=== PATIENT | female | born 1990 | race American Indian/Alaskan Native ===

== ENCOUNTER 2016-11-26 23:28 | Emergency (ER) | payer SELFPAY ==
[2016-11-26 23:28] VITALS: BMI 26.6
[2016-11-27 00:31] VITALS: TEMP 98.2
[2016-11-27 01:19] VITALS: RESP 16
--- NOTE | 2016-11-27 02:18 | ED PDOC ---
Arrival/HPI - General Chief Complaint: Back Pain Time Seen by Provider: 11/27/16 02:10 Historian: Patient - History of Present Illness Narrative History of Present Illness (Text): 11/27/16 02:13 26 year old female whose past medical history includes gastritis presents to the Emergency department complaining of left sided lower back pain that began 4 days ago. Patient states pain is worse with movement. She denies any numbness, weakness, fever, abdominal pain, or urinary complaints. Denies any trauma or heavy lifting. Patient states she is not taking any prescription medications. Time/Duration: < week Symptom Onset: Gradual Symptom Course: Unchanged Activities at Onset: Rest Past Medical History - Provider Review Nursing Documentation Reviewed: Yes - Infectious Disease Hx of Infectious Diseases: None - Tetanus Immunization Tetanus Immunization: Unknown - Past Medical History Past Medical History: No Previous - Psychiatric Hx Depression: No Hx Emotional Abuse: No Hx Physical Abuse: No Hx Substance Use: No - Surgical History Hx Section: Yes - Anesthesia Hx Anesthesia: Yes Hx Anesthesia Reactions: No - Suicidal Assessment Feels Threatened In Home Enviroment: No Family/Social History - Physician Review Nursing Documentation Reviewed: Yes Family/Social History: Unknown Family HX Smoking Status: Never Smoked Hx Alcohol Use: No Hx Substance Use: No Hx Substance Use Treatment: No Allergies/Home Meds Allergies/Adverse Reactions: Allergies No Known Allergies Allergy (Verified 11/27/16 00:26) Review of Systems - Physician Review All systems were reviewed & negative as marked: Yes - Review of Systems Constitutional: absent: Fevers Gastrointestinal: absent: Abdominal Pain Genitourinary Female: absent: Dysuria, Frequency, Hematuria Neurological: absent: Focal Weakness, Other (no numbness) Physical Exam Vital Signs Reviewed: Yes Vital Signs Temp Pulse Resp BP Pulse Ox 11/27/16 05:14 67 16 102/61 99 11/27/16 03:59 66 16 98 11/27/16 01:18 72 16 113/61 100 11/27/16 00:29 98.2 F Temperature: Afebrile Blood Pressure: Normal Pulse: Regular Respiratory Rate: Normal Appearance: Positive for: Well-Appearing, Non-Toxic, Comfortable Pain Distress: None Mental Status: Positive for: Alert and Oriented X 3 - Systems Exam Head: Present: Atraumatic, Normocephalic Pupils: Present: PERRL Extroacular Muscles: Present: EOMI Conjunctiva: Present: Normal Mouth: Present: Moist Mucous Membranes Neck: Present: Normal Range of Motion Respiratory/Chest: Present: Clear to Auscultation, Good Air Exchange. No: Respiratory Distress, Accessory Muscle Use, Wheezes, Rales, Rhonchi Cardiovascular: Present: Regular Rate and Rhythm, Normal S1, S2. No: Murmurs, Rub, Gallop Abdomen: Present: Normal Bowel Sounds. No: Tenderness, Distention, Peritoneal Signs, Rebound, Guarding Back: Present: Pain with Leg Raise (+mild left sided lower back discomfort). No : CVA Tenderness, Midline Tenderness Upper Extremity: Present: Normal Inspection. No: Cyanosis, Edema Lower Extremity: Present: Normal Inspection, Normal ROM, Neurovascularly Intact. No: Edema Neurological: Present: GCS=15, CN II-XII Intact, Speech Normal, Motor Func Grossly Intact, Normal Sensory Function Skin: Present: Warm, Dry, Normal Color. No: Rashes Psychiatric: Present: Alert, Oriented x 3, Normal Insight, Normal Concentration Medical Decision Making ED Course and Treatment: 11/27/16 02:20 Impression: 26 year old female complaining of left sided lower back pain. Physical exam revealed mild left sided lower back discomfort with straight leg raise. Plan: --HCG, UA -- Reassess and disposition Prior Visits: Notes and results from previous visits were reviewed. Progress Notes: - Lab Interpretations Lab Results: Lab Results 11/27/16 02:48: Urine Color Yellow, Urine Appearance Clear, Urine pH 6.0, Ur Specific [place] >= 1.030, Urine Protein Negative, Urine Glucose (UA) Negative, Urine Ketones Negative, Urine Blood Trace-intact H, Urine Nitrate Negative, Urine Bilirubin Negative, Urine Urobilinogen 0.2, Ur Leukocyte Esterase Negative , Urine RBC 5 - 10, Urine WBC 2 - 5, Ur Epithelial Cells 4 - 5, Urine HCG, Qual Negative I have reviewed the lab results: Yes - Medication Orders Current Medication Orders: Discontinued Medications Cyclobenzaprine HCl (Flexeril) 10 mg PO ONCE ONE Stop: 11/27/16 03:35 Last Admin: 11/27/16 04:04 Dose: 10 MG Ibuprofen (Motrin Tab) 600 mg PO STAT STA Stop: 11/27/16 03:35 Last Admin: 11/27/16 04:02 Dose: 600 MG MAR Pain/Vitals Document 11/27/16 04:02 EKEOO (Rec: 11/27/16 04:04 LAURA [id number]) Pain Reassessment Is This A Pain ReAssessment? No Sleep Is patient sleeping during reassessment? No Presence of Pain Presence of Pain Yes - Scribe Statement The provider has reviewed the documentation as recorded by the Claudio Zamudio Provider Scribe Attestation: All medical record entries made by the Scribe were at my direction and personally dictated by me. I have reviewed the chart and agree that the record accurately reflects my personal performance of the history, physical exam, medical decision making, and the department course for this patient. I have also personally directed, reviewed, and agree with the discharge instructions and disposition. Disposition/Present on Arrival - Present on Arrival Any Indicators Present on Arrival: No History of DVT/PE: No History of Uncontrolled Diabetes: No Urinary Catheter: No History of Decub. Ulcer: No History Surgical Site Infection Following: None - Disposition Have Diagnosis and Disposition been Completed?: Yes Diagnosis: Back muscle spasm, Lower back pain, Muscle strain Disposition: HOME/ ROUTINE Disposition Time: 05:00 Patient Plan: Discharge Condition: GOOD Discharge Instructions (ExitCare): Back Pain (ED), Muscle Strain (ED), Muscle Spasm (ED) Additional Instructions: Rest/no strenuous physical activity/take meds as prescribed/follow up with your doctor Prescriptions: Cyclobenzaprine [Cyclobenzaprine HCl] 10 mg PO TID PRN #15 tab PRN Reason: Muscle Spasm Naproxen [Naprosyn Tab] 375 mg PO BID PRN #14 tab PRN Reason: Pain, Moderate (4-7) Referrals: Kristi Green MD [Primary Care Provider] - Follow up with primary
[2016-11-27 02:55] LABS: URINE BILIRUBIN NEGATIVE (NEGATIVE); URINE BLOOD TRACE-INTACT (NEGATIVE); URINE GLUCOSE (UA) NEGATIVE (NEGATIVE); URINE KETONE NEGATIVE (NEGATIVE); URINE LEUKOCYTE ESTERASE NEGATIVE Leu/uL (NEGATIVE); URINE PROTEIN NEGATIVE mg/dL (<30 mg/dL); URINE UROBILINOGEN 0.2 E.U./dL (<1 E.U./dL)
[2016-11-27 02:58] LABS: URINE COLOR YELLOW (YELLOW)
[2016-11-27 02:59] LABS: URINE APPEARANCE CLEAR (CLEAR)
[2016-11-27 05:16] VITALS: BP 102/61; PULSE 67; O2SAT 99
== END 2016-11-27 05:16 | disposition home or self-care (01) ==
LOC: ED 23:28
DX: M62.830 Muscle spasm of back (principal); M54.5 Low back pain; S39.012A Strain of muscle, fascia and tendon of lower back, initial encounter; X58.XXXA Exposure to other specified factors, initial encounter

== ENCOUNTER 2017-01-20 15:34 | Emergency (ER) | payer MEDICAID ==
[2017-01-20 15:35] VITALS: BMI 26.6
[2017-01-20 16:14] VITALS: BP 108/71; PULSE 86; RESP 16; TEMP 98.9; O2SAT 99
[2017-01-20] MEDS ORDERED: Sodium Chloride 0.9% 1,000 ML IV STA (16:25)
--- NOTE | 2017-01-20 16:35 | ED PDOC ---
Arrival/HPI - General Chief Complaint: Abdominal Pain Time Seen by Provider: 01/20/17 15:39 Historian: Patient - History of Present Illness Narrative History of Present Illness (Text): 01/20/17 16:33 26yr old female presents today with crampy and sharp abdominal pain and with nausea. pt states she is approx 7 weeks and developed lower abdominal pain. pt states she took tylenol once for the pain with some relief. pt denies fever/chills. pt states because she is having the abdominal pain she now has headache. pt denies urinary symptoms. c/o achy back pain bilaterally. denies vaginal bleeding or vaginal discharge. no cp or sob. Pt states she was worried because during her last they were concerned about ectopic , so she is again concerned that she could be having an ectopic . Time/Duration: Other (2 days) Symptom Onset: Gradual Symptom Course: Intermittent Quality: Aching, Cramping Severity Level: 3 Past Medical History - Provider Review Nursing Documentation Reviewed: Yes - Travel History Have you recently traveled outside [place] w/in the past 3 mons?: No - Infectious Disease Hx of Infectious Diseases: None - Tetanus Immunization Tetanus Immunization: Unknown - Past Medical History Past Medical History: No Previous - Gastrointestinal Hx Gastritis: Yes - Psychiatric Hx Depression: No Hx Emotional Abuse: No Hx Physical Abuse: No Hx Substance Use: No - Surgical History Hx Section: Yes - Anesthesia Hx Anesthesia: Yes - Suicidal Assessment Feels Threatened In Home Enviroment: No Family/Social History - Physician Review Nursing Documentation Reviewed: Yes Family/Social History: Unknown Family HX Smoking Status: Never Smoked Hx Alcohol Use: No Hx Substance Use: No Hx Substance Use Treatment: No Allergies/Home Meds Allergies/Adverse Reactions: Allergies No Known Allergies Allergy (Verified 01/20/17 16:08) Review of Systems - Review of Systems Constitutional: absent: Fatigue, Fevers Respiratory: absent: SOB, Cough Cardiovascular: absent: Chest Pain, Palpitations Gastrointestinal: Abdominal Pain, Diarrhea (2 episodes yesterday; none today), Nausea. absent: Constipation Genitourinary Female: absent: Dysuria, Frequency, Vaginal Bleeding, Vaginal Discharge Musculoskeletal: Back Pain. absent: Arthralgias, Neck Pain Skin: absent: Rash, Pruritis Neurological: Headache. absent: Dizziness Psychiatric: absent: Anxiety, Depression, Suicidal Ideation Physical Exam Vital Signs Reviewed: Yes Vital Signs Temp Pulse Resp BP Pulse Ox 01/20/17 16:08 98.9 F 86 16 108/71 99 Temperature: Afebrile Blood Pressure: Normal Pulse: Regular Respiratory Rate: Normal Appearance: Positive for: Well-Appearing, Non-Toxic, Comfortable Pain Distress: None Mental Status: Positive for: Alert and Oriented X 3 - Systems Exam Head: Present: Atraumatic Mouth: Present: Moist Mucous Membranes Neck: Present: Normal Range of Motion Respiratory/Chest: Present: Clear to Auscultation, Good Air Exchange. No: Respiratory Distress, Accessory Muscle Use Cardiovascular: Present: Regular Rate and Rhythm, Normal S1, S2. No: Murmurs Abdomen: Present: Normal Bowel Sounds. No: Tenderness, Distention, Peritoneal Signs, Rebound, Guarding Genitourinary/Pelvic Exam: Present: Normal External Genitalia, Cervical os Closed, Other (chaparone by gudelia GONZALEZ). No: Vaginal Discharge, Vaginal Bleeding, Vaginal Lesions, Adenexal Tenderness, Adenexal Mass, Cervical Motion Tendernes, Odor Upper Extremity: Present: Normal Inspection Lower Extremity: Present: Normal Inspection. No: Edema Neurological: Present: GCS=15, Speech Normal Skin: Present: Warm, Dry, Normal Color. No: Rashes Psychiatric: Present: Alert, Oriented x 3 Medical Decision Making ED Course and Treatment: 01/20/17 16:36 Patient is nontoxic well appearing in no distress. vital signs are stable. CBC: wnl CMP: wnl Beta hC TYPE AND SCREEN: o+ Urinalysis: trace blood; no leukocytes Ultrasound: FINDINGS: UTERUS: Measures 10.5 x 6.8 x 7.9 cm. Normal in size and appearance. Anterior uterine fibroid measures 1.6 x 1.5 x 1.6 centimeter. ENDOMETRIUM: Intrauterine gestational sac measures 3.7 x 3.9 x 2.5 centimeter which corresponding to gestational age of 8 weeks 3 days. The CRL measures 10.7 millimeter which corresponding to gestational age of 7 weeks 1 day. The yolk sac measures 1.8 millimeter. heart activity is visualized heart rate is 213 BPM. CERVIX: No cervical abnormality identified. RIGHT OVARY: Measures 3.1 x 2.1 x 3.8 cm. No solid mass. Normal flow. LEFT OVARY: Was not visualized. FREE FLUID: No significant free fluid noted. OTHER FINDINGS: None. IMPRESSION: Single intrauterine live with ultrasound estimated gestational age of 7 weeks 2 days +/- 0 weeks 4 days. Estimated date of delivery by ultrasound is 09/06/2017. Nonvisualization of the left ovary this exam. Discussed all the results the patient. advised f/u with the hospital medicine director within the next 2 days. advised immediate return if symptoms worsen,persist or if new symptoms develop. Impression: threatened , abdominal pain, Tylenol every 4 hours as needed for pain Increase fluids Followup with the photography manager within the next 2 days Continue vitamins daily. Return immediately if symptoms worsen persist or if new symptoms develop: High fevers, heavy bleeding, severe abdominal pain, vomiting, diarrhea, dizziness or weakness or any other concerning symptoms develop. - Lab Interpretations Lab Results: 01/20/17 17:05 01/20/17 17:05 Lab Results 01/20/17 17:35: Blood Type Confirm O POSITIVE 01/20/17 17:05: WBC 6.9 D, RBC 3.83, Hgb 12.3, Hct 34.6 L, MCV 90.3, MCH 32.1, MCHC 35.5, RDW 11.9, Plt Count 223, MPV 10.0, Gran % 69.7 H, Lymph % (Auto) 23.9 , [place] % (Auto) 5.7, Eos % (Auto) 0.6 L, Baso % (Auto) 0.1, Gran # 4.78, Lymph # 1.6, [place] # 0.4, Eos # 0.0, Baso # 0.01 01/20/17 17:05: Blood Type O POSITIVE, Antibody Screen Negative, BBK History Checked No verified bt 01/20/17 17:05: Beta HCG, Quant 34640.00 H 01/20/17 17:05: Sodium 134, Potassium 4.0, Chloride 101, Carbon Dioxide 23, Anion Gap 14, BUN 11, Creatinine 0.6, Est GFR ( Amer) > 60, Est GFR (Non- Af Amer) > 60, Random Glucose 85, Calcium 9.2, Total Bilirubin 0.2, AST 13 L, ALT 24, Alkaline Phosphatase 39, Total Protein 6.9, Albumin 3.8, Globulin 3.1, Albumin/Globulin Ratio 1.2, Lipase 50 01/20/17 17:05: Urine Color Yellow, Urine Appearance Clear, Urine pH 6.5, Ur Specific [place] 1.020, Urine Protein Negative, Urine Glucose (UA) Negative, Urine Ketones Negative, Urine Blood Trace-intact H, Urine Nitrate Negative, Urine Bilirubin Negative, Urine Urobilinogen 0.2, Ur Leukocyte Esterase Negative , Urine RBC 1 - 3, Urine WBC 0 - 2, Ur Epithelial Cells 0 - 2, Urine Bacteria Few - RAD Interpretation Radiology Orders: 01/20/17 16:31 TRANSVAGINAL [US] Stat - Medication Orders Current Medication Orders: Discontinued Medications Acetaminophen (Tylenol 325mg Tab) 975 mg PO STAT STA Stop: 01/20/17 16:32 Last Admin: 01/20/17 17:00 Dose: 325 mg Comments: pt requested to take 1 tylenol Sodium Chloride (Sodium Chloride 0.9%) 1,000 mls @ 999 mls/hr IV .Q1H1M STA Stop: 01/20/17 17:25 Last Admin: 01/20/17 17:00 Dose: 999 mls/hr Disposition/Present on Arrival - Present on Arrival Any Indicators Present on Arrival: No History of DVT/PE: No History of Uncontrolled Diabetes: No Urinary Catheter: No History of Decub. Ulcer: No History Surgical Site Infection Following: None - Disposition Have Diagnosis and Disposition been Completed?: Yes Diagnosis: Threatened , Abdominal pain Disposition: HOME/ ROUTINE Disposition Time: 19:32 Patient Plan: Discharge Patient Problems: Current Active Problems Problem Status Onset Threatened Acute Abdominal pain Acute Condition: GOOD Discharge Instructions (ExitCare): Threatened Miscarriage (ED) Additional Instructions: Tylenol every 4 hours as needed for pain Increase fluids Followup with the photography manager within the next 2 days Continue vitamins daily. Return immediately if symptoms worsen persist or if new symptoms develop: High fevers, heavy bleeding, severe abdominal pain, vomiting, diarrhea, dizziness or weakness or any other concerning symptoms develop. Prescriptions: Multivit/Folic Acid/I [ Plus] 1 tab PO DAILY #30 tab Referrals: Kristi Green MD [Primary Care Provider] - Follow up with primary Forms: WORK NOTE
[2017-01-20 17:17] LABS: ADD MANUAL DIFF? NO
[2017-01-20 17:33] LABS: BASO # 0.01 K/mm3 (0.0-2.0); BASO % 0.1 % (0.0-3.0); EOS % 0.6 % (1.5-5.0); GRAN # 4.78 (1.4-6.5); GRAN % 69.7 % (50.0-68.0); HEMATOCRIT 34.6 % (36.0-48.0); LYMPH # 1.6 (1.2-3.4); LYMPH % 23.9 % (22.0-35.0); MEAN CELL VOLUME 90.3 fL (80.0-105.0); MEAN CORPUSCULAR HEMOGLOBIN 32.1 pg (25.0-35.0); MEAN CORPUSCULAR HGB CONC 35.5 g/dl (31.0-37.0); MONO # 0.4 (0.1-0.6); MONO % 5.7 % (1.0-6.0); PLATELET COUNT 223 10^3/uL (120.0-450.0); RED CELL DISTRIBUTION WIDTH 11.9 % (11.5-14.5); WHITE BLOOD COUNT 6.9 10^3/ul (4.5-11.0)
[2017-01-20 17:34] LABS: PH,URINE 6.5 (4.7-8.0); URINE BILIRUBIN NEGATIVE (NEGATIVE); URINE BLOOD TRACE-INTACT (NEGATIVE); URINE GLUCOSE (UA) NEGATIVE (NEGATIVE); URINE KETONE NEGATIVE (NEGATIVE); URINE LEUKOCYTE ESTERASE NEGATIVE Leu/uL (NEGATIVE); URINE PROTEIN NEGATIVE mg/dL (<30 mg/dL); URINE UROBILINOGEN 0.2 E.U./dL (<1 E.U./dL)
[2017-01-20 17:35] LABS: ALB/GLOB RATIO 1.2 (1.1-1.8); ALKALINE PHOSPHATASE 39 U/L (38-133); ALT/SGPT 24 U/L (7-56); AST/SGOT 13 U/L (15-39); BILIRUBIN,TOTAL 0.2 mg/dL (0.2-1.3); BLOOD UREA NITROGEN 11 mg/dL (7-21); CALCIUM 9.2 mg/dL (8.4-10.5); CARBON DIOXIDE 23 mmol/L (21-33); CHLORIDE 101 mmol/L (98-107); GFR AFRICAN-AMERICAN > 60; GLUCOSE,RANDOM 85 mg/dL (70-110); LIPASE 50 U/L (23-300); SODIUM 134 mmol/L (132-148); TOTAL PROTEIN 6.9 g/dL (5.8-8.3); URINE APPEARANCE CLEAR (CLEAR); URINE COLOR YELLOW (YELLOW)
[2017-01-20 17:42] LABS: URINE BACTERIA FEW (NEG); URINE EPITHELIAL CELLS 0 - 2 /hpf (0-5); URINE WBC 0 - 2 /hpf (0-6)
--- NOTE | 2017-01-20 18:45 | US ---
HISTORY: pain/ COMPARISON: None available. TECHNIQUE: Transvaginal ultrasound examination of the pelvis. FINDINGS: UTERUS: Measures 10.5 x 6.8 x 7.9 cm. Normal in size and appearance. Anterior uterine fibroid measures 1.6 x 1.5 x 1.6 centimeter. ENDOMETRIUM: Intrauterine gestational sac measures 3.7 x 3.9 x 2.5 centimeter which corresponding to gestational age of 8 weeks 3 days. The CRL measures 10.7 millimeter which corresponding to gestational age of 7 weeks 1 day. The yolk sac measures 1.8 millimeter. heart activity is visualized heart rate is 213 BPM. CERVIX: No cervical abnormality identified. RIGHT OVARY: Measures 3.1 x 2.1 x 3.8 cm. No solid mass. Normal flow. LEFT OVARY: Was not visualized. FREE FLUID: No significant free fluid noted. OTHER FINDINGS: None. IMPRESSION: Single intrauterine live with ultrasound estimated gestational age of 7 weeks 2 days +/- 0 weeks 4 days. Estimated date of delivery by ultrasound is 09/06/2017. Nonvisualization of the left ovary this exam.
== END 2017-01-20 19:40 | disposition home or self-care (01) ==
LOC: ED 15:34
DX: O20.0 Threatened abortion (principal); Z3A.01 Less than 8 weeks gestation of pregnancy; R10.9 Unspecified abdominal pain
CPT/HCPCS: 76830; 80053; 81001; 83690; 84702; 85025; 86850; 86900; 96360; 99283; J7040

== ENCOUNTER 2017-04-08 12:03 | Emergency (ER) | payer MEDICAID, OTHER ==
[2017-04-08 12:21] VITALS: BMI 25.8
[2017-04-08 12:25] VITALS: TEMP 98.9
--- NOTE | 2017-04-08 12:29 | ED PDOC ---
Arrival/HPI - General Chief Complaint: Lower Extremity Problem/Injury Time Seen by Provider: 04/08/17 12:27 Historian: Patient - History of Present Illness Narrative History of Present Illness (Text): 04/08/17 12:29 26 y/o female, no significant pmh, approx. 18 weeks , nkda, c/o lt. lower leg pain and swelling for the past 2 days. Pt. stated that she has lt. leg pain started yesterday, was swelling but better today, call the obgyn and advised to come to the ER, no numbness or tingling, no lower back pain, no abdominal or pelvic pain, no urinary symptoms, no rash, no other medical or psychological complaints. Past Medical History - Provider Review Nursing Documentation Reviewed: Yes - Infectious Disease Hx of Infectious Diseases: None - Tetanus Immunization Tetanus Immunization: Unknown - Past Medical History Past Medical History: No Previous - Gastrointestinal Hx Gastritis: Yes - Psychiatric Hx Depression: No Hx Emotional Abuse: No Hx Physical Abuse: No Hx Substance Use: No - Surgical History Hx Section: Yes (x1) - Anesthesia Hx Anesthesia: Yes Hx Anesthesia Reactions: No - Suicidal Assessment Feels Threatened In Home Enviroment: No Family/Social History - Physician Review Nursing Documentation Reviewed: Yes Family/Social History: Unknown Family HX Smoking Status: Never Smoked Hx Alcohol Use: No Hx Substance Use: No Hx Substance Use Treatment: No Allergies/Home Meds Allergies/Adverse Reactions: Allergies No Known Allergies Allergy (Verified 04/08/17 12:21) Review of Systems - Review of Systems Constitutional: absent: Fatigue, Fevers Eyes: absent: Vision Changes ENT: absent: Hearing Changes Respiratory: absent: SOB Cardiovascular: absent: Chest Pain Gastrointestinal: absent: Abdominal Pain, Nausea, Vomiting Musculoskeletal: Myalgias. absent: Arthralgias, Back Pain, Neck Pain, Joint Swelling Skin: absent: Rash, Pruritis, Skin Lesions Physical Exam Vital Signs Reviewed: Yes Vital Signs Temp Pulse Resp BP Pulse Ox 04/08/17 14:23 68 18 111/72 98 04/08/17 13:45 71 17 110/70 99 04/08/17 12:24 98.9 F 74 18 105/69 99 Temperature: Afebrile Blood Pressure: Normal Pulse: Regular Respiratory Rate: Normal Appearance: Positive for: Well-Appearing, Non-Toxic, Comfortable Pain Distress: Mild Mental Status: Positive for: Alert and Oriented X 3 - Systems Exam Head: Present: Atraumatic, Normocephalic Pupils: Present: PERRL Extroacular Muscles: Present: EOMI Conjunctiva: Present: Normal Mouth: Present: Moist Mucous Membranes Neck: Present: Normal Range of Motion Respiratory/Chest: Present: Clear to Auscultation, Good Air Exchange. No: Respiratory Distress, Accessory Muscle Use Cardiovascular: Present: Regular Rate and Rhythm, Normal S1, S2, Other (no pedal edema). No: Murmurs Abdomen: Present: Normal Bowel Sounds. No: Tenderness, Distention, Peritoneal Signs Back: Present: Normal Inspection Upper Extremity: Present: Normal Inspection. No: Cyanosis, Edema Lower Extremity: Present: Normal Inspection, Other (LLE: mild +ttp on the lt. calf, no swelling on the left lower extremity, skin intact, no ecchymosis, no rash, FROM without limitation, sensation intact, motor 5/5, +DPPT pulses, capillary refill< 2 seconds, neurovascular intact. ). No: Edema Neurological: Present: GCS=15, CN II-XII Intact, Speech Normal Skin: Present: Warm, Dry, Normal Color. No: Rashes Psychiatric: Present: Alert, Oriented x 3, Normal Insight, Normal Concentration Medical Decision Making ED Course and Treatment: 04/08/17 12:34 -LLE venuous doppler -UA -observe and reasses 04/08/17 14:13 -LLE venuous doppler: as per preliminary report, no acute DVT -UA show no UTI -Pt. feels well, will discharge home. -Discharge home with education on take tylenol as needed, follow up with your own pmd and obgyn within 2 days, return to the ER for any new or worsening signs or symptoms. - Lab Interpretations Lab Results: Lab Results 04/08/17 13:19: Urine Color Yellow, Urine Appearance Clear, Urine pH 7.5, Ur Specific [place] 1.015, Urine Protein Negative, Urine Glucose (UA) Negative, Urine Ketones Negative, Urine Blood Negative, Urine Nitrate Negative, Urine Bilirubin Negative, Urine Urobilinogen 0.2, Ur Leukocyte Esterase Negative I have reviewed the lab results: Yes Interpretation: No clinic. lab abnormalty - RAD Interpretation Radiology Orders: 04/08/17 12:28 DUPLEX LOWER EXTRM VEIN LEFT [US] Stat LLE venuous doppler: as per preliminary, no acute DVT Flow Specialist: Radiologist - PA / TRACTOR SWEEPER OPERATOR / Resident Statement MD/DO has reviewed & agrees with the documentation as recorded. Disposition/Present on Arrival - Present on Arrival Any Indicators Present on Arrival: No History of DVT/PE: No History of Uncontrolled Diabetes: No Urinary Catheter: No History of Decub. Ulcer: No History Surgical Site Infection Following: None - Disposition Have Diagnosis and Disposition been Completed?: Yes Diagnosis: Leg pain Disposition: HOME/ ROUTINE Disposition Time: 12:34 Patient Plan: Discharge Condition: GOOD Additional Instructions: -Discharge home with education on take tylenol as needed, follow up with your own pmd and obgyn within 2 days, return to the ER for any new or worsening signs or symptoms. Referrals: Kristi Green MD [Primary Care Provider] - Follow up with primary Maria Antonia Mandujano MD [Medical Doctor] - Follow up with primary Forms: [facility] ([place]), WORK NOTE
[2017-04-08 13:36] LABS: PH,URINE 7.5 (4.7-8.0); URINE APPEARANCE CLEAR (CLEAR); URINE BILIRUBIN NEGATIVE (NEGATIVE); URINE BLOOD NEGATIVE (NEGATIVE); URINE COLOR YELLOW (YELLOW); URINE GLUCOSE (UA) NEGATIVE (NEGATIVE); URINE LEUKOCYTE ESTERASE NEGATIVE Leu/uL (NEGATIVE); URINE NITRATE NEGATIVE (NEGATIVE); URINE PROTEIN NEGATIVE mg/dL (<30 mg/dL); URINE UROBILINOGEN 0.2 E.U./dL (<1 E.U./dL)
[2017-04-08 14:24] VITALS: BP 111/72; PULSE 68; RESP 18; O2SAT 98
--- NOTE | 2017-04-08 14:58 | US ---
PROCEDURE: Left lower extremity venous US HISTORY: Leg pain and swelling. Evaluate for DVT. PHYSICIAN(S): Evert Marie MD. TECHNIQUE: Duplex sonography and color-flow Doppler with graded compression were used to evaluate the deep venous system of the left lower extremity. FINDINGS: The visualized deep venous system of the left lower extremity is sonographically normal and compressible. Normal wave forms and augmentation are seen. There is no sonographic evidence for deep venous thrombosis in the visualized segments of the left lower extremity. IMPRESSION: 1. No sonographic evidence for deep venous thrombosis in the visualized segments of the left lower extremity.
== END 2017-04-08 14:25 | disposition home or self-care (01) ==
LOC: ED 12:03
DX: M79.605 Pain in left leg (principal)

== ENCOUNTER 2018-03-20 11:05 | Emergency (ER) | payer OTHER ==
[2018-03-20 11:25] VITALS: BMI 26.5
[2018-03-20] MEDS ORDERED: Sodium Chloride 0.9% 1,000 ML IV STA (11:35)
--- NOTE | 2018-03-20 11:41 | ED PDOC ---
Arrival/HPI - General Chief Complaint: Abdominal Pain Time Seen by Provider: 03/20/18 11:22 Historian: Patient - History of Present Illness Narrative History of Present Illness (Text): 03/20/18 11:33 27 year old female, who denies any past medical history, presents to the emergency department complaining of progressively worsening abdominal pain since this morning. Patient reports associated chills, nausea, 2 episodes of watery diarrhea, and back pain. Patient notes she took pepto bismol for the pain , with no relief. She had some shirmp yesterday and said she may have gotten sick from that. Patient denies any fever, cough, shortness of breath, chest pain , headache, dizziness, urinary symptoms, vaginal discharge, rash or any other complaints at this time. Patients last menstrual period began 2 days ago. PMD: Dr. Green Time/Duration: Other (this morning) Symptom Onset: Gradual Symptom Course: Worsening Severity Level: 10 Context: Home Past Medical History - Provider Review Nursing Documentation Reviewed: Yes - Infectious Disease Hx of Infectious Diseases: None - Tetanus Immunization Tetanus Immunization: Unknown - Past Medical History Past Medical History: No Previous - Cardiac Hx Cardiac Disorders: No - Pulmonary Hx Respiratory Disorders: No - Neurological Hx Neurological Disorder: No - HEENT Hx HEENT Disorder: No - Renal Hx Renal Disorder: No - Endocrine/Metabolic Hx Endocrine Disorders: No - Hematological/Oncological Hx Blood Disorders: No - Integumentary Hx Dermatological Disorder: No - Musculoskeletal/Rheumatological Hx Musculoskeletal Disorders: No - Gastrointestinal Hx Gastrointestinal Disorders: Yes Hx Gastritis: Yes - Genitourinary/Gynecological Hx Genitourinary Disorders: No - Psychiatric Hx Psychophysiologic Disorder: No Hx Substance Use: No - Surgical History Hx Section: Yes (x1) - Anesthesia Hx Anesthesia: Yes Hx Anesthesia Reactions: No - Suicidal Assessment Feels Threatened In Home Enviroment: No Family/Social History - Physician Review Nursing Documentation Reviewed: Yes Family/Social History: Unknown Family HX Smoking Status: Never Smoked Hx Alcohol Use: No Hx Substance Use: No Hx Substance Use Treatment: No Allergies/Home Meds Allergies/Adverse Reactions: Allergies No Known Allergies Allergy (Verified 03/20/18 11:30) Review of Systems - Physician Review All systems were reviewed & negative as marked: Yes - Review of Systems Constitutional: Night Sweats. absent: Fevers Respiratory: absent: SOB, Cough Cardiovascular: absent: Chest Pain Gastrointestinal: Abdominal Pain (lower abdominal pain), Diarrhea (watery x2), Nausea. absent: Vomiting Genitourinary Female: absent: Dysuria, Frequency, Vaginal Discharge Musculoskeletal: Back Pain. absent: Neck Pain Skin: absent: Rash Neurological: absent: Headache, Dizziness Physical Exam Vital Signs Reviewed: Yes Vital Signs Temp Pulse Resp BP Pulse Ox 03/20/18 16:13 98.5 F 92 H 18 110/49 L 100 03/20/18 12:00 100.0 F H 03/20/18 11:31 100.0 F H 68 20 116/69 98 Temperature: Febrile Blood Pressure: Normal Pulse: Regular Respiratory Rate: Normal Appearance: Positive for: Well-Appearing, Non-Toxic, Comfortable Pain Distress: Moderate Mental Status: Positive for: Alert and Oriented X 3 - Systems Exam Head: Present: Atraumatic, Normocephalic Pupils: Present: PERRL Extroacular Muscles: Present: EOMI Conjunctiva: Present: Normal Mouth: Present: Moist Mucous Membranes Neck: Present: Normal Range of Motion Respiratory/Chest: Present: Clear to Auscultation, Good Air Exchange. No: Respiratory Distress, Accessory Muscle Use Cardiovascular: Present: Regular Rate and Rhythm, Normal S1, S2. No: Murmurs Abdomen: Present: Tenderness (diffuse), Normal Bowel Sounds, Guarding (to epigastric, LUQ, and mid-LLQ regions). No: Distention, Peritoneal Signs Genitourinary/Pelvic Exam: Present: Normal External Genitalia, Vaginal Bleeding (trace bleeding), Cervical os Closed, Other (No IUD visualized). No: Vaginal Discharge, Vaginal Lesions, Adenexal Tenderness, Cervical Motion Tendernes, Odor Upper Extremity: Present: Normal Inspection. No: Cyanosis, Edema Lower Extremity: Present: Normal Inspection. No: Edema Neurological: Present: GCS=15, CN II-XII Intact, Speech Normal Skin: Present: Warm (warm to touch ), Dry, Normal Color. No: Rashes Psychiatric: Present: Alert, Oriented x 3, Normal Insight, Normal Concentration Medical Decision Making ED Course and Treatment: 03/20/18 11:38 Impression: 27 year old female with diffuse abdominal pain. Differential Diagnoses: Appendicitis vs. Pancreatitis vs. Colitis Plan: -- Abdomen and pelvis CT -- Labs -- Blood culture -- Urinalysis -- Tylenol, Pepcid, Toradol, Zofran, IV fluids -- Reassess and disposition Progress Notes: 03/20/18 18:13 reator : Yuval Mcfarland MD Dictator : Yuval Mcfarland MD Assurance Senior Manager Insurance : Oncology Rep Specialist : Yuval Mcfarland MD Approver2 : Report Date : 03/20/2018 14:38:45 My Comment : Date of service: 03/20/2018 PROCEDURE: CT Abdomen and Pelvis with contrast IMPRESSION: There is abnormal position of the IUD. One of the limbs of the IUD has penetrated through the dorsal aspect of the uterus. This can be seen on image 79 in the sagittal plane. There is no evidence of abscess formation or bowel perforation. Right-sided ovarian cysts are seen measuring 24 and 11 mm in diameter. The right ovary can be seen adjacent to the right abdominal wall. The left ovary is unremarkable. There is a small amount of fluid in the cul-de-sac TVSONO IMPRESSION: Confirmation that the IUD is not in expected position within the Pramod the sternal canal. Case discussed with pt's DIRECTOR OF REVENUE CYCLE MANAGEMENT, Dr. Weber, who is aware and agrees with plan to transfer to [facility] and he will remove the IUD most likely in the AM. Requests cipro and flagyl due to low grade fever and elevated WBC. Case discussed with Dr. Sharif, ED Physician who will accept case as transfer. Case discussed with Dr. Cho who will accept the case from OBGYN. - Lab Interpretations Lab Results: 03/20/18 11:57 03/20/18 11:57 Lab Results 03/20/18 12:14: Blood Type O POSITIVE, Antibody Screen Negative, BBK History Checked Patient has bt 03/20/18 11:57: Sodium 141, Chloride 104, Potassium 4.0, Carbon Dioxide 24, Anion Gap 17, BUN 15, Creatinine 0.6 L, Est GFR ( Amer) > 60, Est GFR ( Non-Af Amer) > 60, Random Glucose 89, Calcium 9.2, Magnesium 1.6 L, Total Bilirubin 0.9, AST 25, ALT 24, Alkaline Phosphatase 90, Total Protein 8.0, Albumin 4.6, Globulin 3.4, Albumin/Globulin Ratio 1.3, Lipase 59 03/20/18 11:57: pO2 91 H, VBG pH 7.43, VBG pCO2 33.0 L, VBG HCO3 21.9, VBG Total CO2 22.9, VBG O2 Sat (Calc) 97.9 H, VBG Base Excess -1.7 L, VBG Potassium 3.9, Sodium 137.0, Chloride 107.0, Glucose 86, Lactate 1.5, FiO2 21.0, Venous Blood Potassium 3.9 03/20/18 11:57: PT 11.5, INR 1.00, APTT 29.6 03/20/18 11:57: WBC 11.8 H D, RBC 4.34, Hgb 13.9, Hct 39.4, MCV 90.8, MCH 32.0, MCHC 35.3, RDW 12.5, Plt Count 257, MPV 9.9, Gran % 89.9 H, Lymph % (Auto) 3.6 L , Gladwin % (Auto) 6.2 H, Eos % (Auto) 0.2 L, Baso % (Auto) 0.1, Gran # 10.64 H, Lymph # (Auto) 0.4 L, Gladwin # (Auto) 0.7 H, Eos # (Auto) 0.0, Baso # (Auto) 0.01 , Neutrophils % (Manual) 91 H, Lymphocytes % (Manual) 3 L, Monocytes % (Manual) 6, Platelet Evaluation Normal 03/20/18 11:50: Urine Color Yellow, Urine Appearance Clear, Urine pH 6.5, Ur Specific Dulzura 1.015, Urine Protein Negative, Urine Glucose (UA) Negative, Urine Ketones Negative, Urine Blood Large H, Urine Nitrate Negative, Urine Bilirubin Negative, Urine Urobilinogen 0.2, Ur Leukocyte Esterase Negative, Urine RBC 0 - 2, Urine WBC Negative I have reviewed the lab results: Yes - RAD Interpretation Radiology Orders: 03/20/18 11:35 ABD PELVIS PO & IV CONTRAST [CT] Stat 03/20/18 14:26 TRANSVAGINAL [US] Stat - Medication Orders Current Medication Orders: Ciprofloxacin (Cipro 400mg/200ml Dsw) 400 mg in 200 mls @ 133.3 mls/hr IVPB STAT STA PRN Reason: Protocol Stop: 03/20/18 19:42 Metronidazole (Flagyl) 500 mg in 100 mls @ 100 mls/hr IVPB STAT STA PRN Reason: Protocol Stop: 03/20/18 19:11 Sodium Chloride (Sodium Chloride 0.9%) 1,000 mls @ 100 mls/hr IV .Q10H AUBREY Discontinued Medications Acetaminophen (Tylenol 325mg Tab) 650 mg PO STAT STA Stop: 03/20/18 11:38 Last Admin: 03/20/18 12:00 Dose: 650 mg MAR Pain/Vitals Document 03/20/18 12:00 OCS (Rec: 03/20/18 12:01 OCS [id number]) Pain Reassessment Is This A Pain ReAssessment? Yes Sleep Is patient sleeping during reassessment? No Presence of Pain Presence of Pain Yes Pain Scale Used Pain Scale Used Numeric Location Pain Location Body Site Abdomen Description Constant Pain Behavior Crying Irritability Facial Grimacing Vitals Temperature (97.6 F-99.6 F) 100.0 F Temperature Source Oral Acetaminophen (Tylenol 325mg Tab) 650 mg PO STAT STA Stop: 03/20/18 16:42 Last Admin: 03/20/18 17:28 Dose: 650 mg Famotidine (Pepcid) 20 mg IVP STAT STA Stop: 03/20/18 11:36 Last Admin: 03/20/18 11:59 Dose: 20 mg IVP Administration Document 03/20/18 11:59 OCS (Rec: 03/20/18 11:59 OCS [id number]) Charges for Administration # of IVP Administrations 1 Sodium Chloride (Sodium Chloride 0.9%) 1,000 mls @ 1,000 mls/hr IV .Q1H STA Stop: 03/20/18 12:34 Last Admin: 03/20/18 12:03 Dose: 1,000 mls/hr eMAR Start Stop Document 03/20/18 12:03 OCS (Rec: 03/20/18 12:03 OCS [id number]) Intravenous Solution Start Date 03/20/18 Start Time 12:03 End Date 03/20/18 End time 13:03 Total Infusion Time 60 Ketorolac Tromethamine (Toradol) 30 mg IVP STAT STA Stop: 03/20/18 11:36 Last Admin: 03/20/18 11:59 Dose: 30 mg MAR Pain Assessment Document 03/20/18 11:59 OCS (Rec: 03/20/18 12:00 OCS [id number]) Pain Reassessment Is this a pain reassessment? Yes Sleep Is patient sleeping during reassessment? No Presence of Pain Presence of Pain Yes Pain Scale Used Pain Scale Used Numeric Location Pain Location Body Site Abdomen Description Description Constant Intensity of Pain at present 10 Pain Behavior Crying Facial Grimacing IVP Administration Document 03/20/18 11:59 OCS (Rec: 03/20/18 12:00 OCS [id number]) Charges for Administration # of IVP Administrations 1 Morphine Sulfate (Morphine) 2 mg IVP STAT STA Stop: 03/20/18 14:57 Last Admin: 03/20/18 16:45 Dose: Not Given Non-Admin Reason: Patient Refused Ondansetron HCl (Zofran Inj) 4 mg IVP STAT STA Stop: 03/20/18 11:36 Last Admin: 03/20/18 11:59 Dose: 4 mg IVP Administration Document 03/20/18 11:59 OCS (Rec: 03/20/18 11:59 OCS [id number]) Charges for Administration # of IVP Administrations 1 - Scribe Statement The provider has reviewed the documentation as recorded by the Claudio Wade training under Fernanda Olivia All medical record entries made by the Scribsean were at my direction and personally dictated by me. I have reviewed the chart and agree that the record accurately reflects my personal performance of the history, physical exam, medical decision making, and the department course for this patient. I have also personally directed, reviewed, and agree with the discharge instructions and disposition. Disposition/Present on Arrival - Present on Arrival Any Indicators Present on Arrival: No History of DVT/PE: No History of Uncontrolled Diabetes: No Urinary Catheter: No History of Decub. Ulcer: No History Surgical Site Infection Following: None - Disposition Have Diagnosis and Disposition been Completed?: Yes Diagnosis: Abdominal pain, Malpositioned IUD Disposition: Transfer [facility] Disposition Time: 18:37 Patient Plan: Transfer To Condition: [facility] Referrals: Kristi Green MD [Primary Care Provider] - Follow up with primary Forms: [employer] (Latvian)
[2018-03-20] MEDS ORDERED: Iohexol 240 (50 ml) ONE (11:43)
[2018-03-20 12:05] LABS: BASO # 0.01 K/mm3 (0.0-2.0); BASO % 0.1 % (0.0-3.0); EOS % 0.2 % (1.5-5.0); GRAN # 10.64 (1.4-6.5); GRAN % 89.9 % (50.0-68.0); HEMOGLOBIN 13.9 g/dL (12.0-16.0); LYMPH # 0.4 (1.2-3.4); LYMPH % 3.6 % (22.0-35.0); MEAN CELL VOLUME 90.8 fl (80.0-105.0); MEAN CORPUSCULAR HGB CONC 35.3 g/dl (31.0-37.0); MEAN PLATELET VOLUME 9.9 fl (7.0-11.0); MONO # 0.7 (0.1-0.6); MONO % 6.2 % (1.0-6.0); PLATELET COUNT 257 10^3/uL (120.0-450.0); RBC 4.34 10^6/uL (3.5-6.1); RED CELL DISTRIBUTION WIDTH 12.5 % (11.5-14.5); WHITE BLOOD COUNT 11.8 10^3/ul (4.5-11.0)
[2018-03-20 12:06] LABS: VENOUS BLOOD GAS BASE EXCESS -1.7 mmol/L (0.0-2.0); VENOUS BLOOD GAS PO2 91 mm/Hg (30-55); VENOUS BLOOD PH 7.43 (7.32-7.43)
[2018-03-20] MEDS ORDERED: Iohexol 350 MG/100 ML VIAL ONE (12:06)
[2018-03-20 12:17] LABS: ALB/GLOB RATIO 1.3 (1.1-1.8); ALBUMIN 4.6 g/dL (3.0-4.8); ALT/SGPT 24 U/L (7-56); AST/SGOT 25 U/L (14-36); BLOOD UREA NITROGEN 15 mg/dL (7-21); CALCIUM 9.2 mg/dL (8.4-10.5); GFR AFRICAN-AMERICAN > 60; GFR NON-AFRICAN AMERICAN > 60; LIPASE 59 U/L (23-300)
[2018-03-20 12:18] LABS: PARTIAL THROMBOPLASTIN TIME 29.6 Seconds (25.1-36.5); PROTHROMBIN TIME 11.5 SECONDS (9.4-12.5)
[2018-03-20 12:22] LABS: PH,URINE 6.5 (4.7-8.0); URINE BILIRUBIN NEGATIVE (NEGATIVE); URINE BLOOD LARGE (NEGATIVE); URINE GLUCOSE (UA) NEGATIVE (NEGATIVE); URINE LEUKOCYTE ESTERASE NEGATIVE Leu/uL (NEGATIVE); URINE PROTEIN NEGATIVE mg/dL (<30 mg/dL); URINE UROBILINOGEN 0.2 E.U./dL (<1 E.U./dL)
[2018-03-20 12:27] LABS: URINE APPEARANCE CLEAR (CLEAR); URINE COLOR YELLOW (YELLOW)
[2018-03-20 13:08] LABS: URINE RBC 0 - 2 /hpf (0-2); URINE WBC NEGATIVE /hpf (0-6)
[2018-03-20 13:51] LABS: LYMPHOCYTE 3 % (22.0-35.0); MONOCYTE 6 % (1.0-6.0); NEUTROPHIL 91 % (50.0-70.0); PLATELET ESTIMATE NORMAL (NORMAL)
--- NOTE | 2018-03-20 14:40 | CT ---
Date of service: 03/20/2018 PROCEDURE: CT Abdomen and Pelvis with contrast HISTORY: abd pain r/o appy r/o colitis r/o pancreatitis COMPARISON: 05/16/2015 TECHNIQUE: Contrast dose: 100 cc of Omni 350 Radiation dose: Total exam DLP = 383 mGy-cm. This CT exam was performed using one or more of the following dose reduction techniques: Automated exposure control, adjustment of the mA and/or kV according to patient size, and/or use of iterative reconstruction technique. FINDINGS: LOWER THORAX: Unremarkable. LIVER: Unremarkable. No gross lesion or ductal dilatation. GALLBLADDER AND BILE DUCTS: Unremarkable. PANCREAS: Unremarkable. No gross lesion or ductal dilatation. SPLEEN: Unremarkable. ADRENALS: Unremarkable. No mass. KIDNEYS AND URETERS: Unremarkable. No hydronephrosis. No solid mass. VASCULATURE: Unremarkable. No aortic aneurysm. BOWEL: Unremarkable. No obstruction. No gross mural thickening. APPENDIX: Normal appendix. PERITONEUM: Unremarkable. No free fluid. No free air. LYMPH NODES: Unremarkable. No enlarged lymph nodes. BLADDER: Unremarkable. REPRODUCTIVE: There is abnormal position of the IUD. One of the limbs of the IUD has penetrated through the dorsal aspect of the uterus. This can be seen on image 79 in the sagittal plane. There is no evidence of abscess formation or bowel perforation. Right-sided ovarian cysts are seen measuring 24 and 11 mm in diameter. The right ovary can be seen adjacent to the right abdominal wall. The left ovary is unremarkable. There is a small amount of fluid in the cul-de-sac BONES: No acute fracture. OTHER FINDINGS: The findings were reviewed with Dr. Andrade at 2:30 p.m. IMPRESSION: There is abnormal position of the IUD. One of the limbs of the IUD has penetrated through the dorsal aspect of the uterus. This can be seen on image 79 in the sagittal plane. There is no evidence of abscess formation or bowel perforation. Right-sided ovarian cysts are seen measuring 24 and 11 mm in diameter. The right ovary can be seen adjacent to the right abdominal wall. The left ovary is unremarkable. There is a small amount of fluid in the cul-de-sac
[2018-03-20] MEDS ORDERED: Morphine 2 mg/2 mL syringe IVP STA (14:56)
[2018-03-20] MEDS ORDERED: Morphine 2 mg/ml ISec ONE (16:16)
[2018-03-20 16:21] VITALS: RESP 18
--- NOTE | 2018-03-20 16:51 | US ---
Date of service: 03/20/2018 HISTORY: abd pain; please evaluate IUD placement COMPARISON: 03/20/2018 CT abdomen and pelvis. TECHNIQUE: Transvaginal only. Real -time technique with 2D, duplex and color Doppler FINDINGS: UTERUS: Measures 3.8 x 4.6 x 8.4 cm. Normal in size and appearance. Intramural fibroid less than 1 cm ENDOMETRIUM: Measures 3.5 mm in diameter. The IUD is not in place, a finding confirmed on recent CT scan of the abdomen and pelvis. CERVIX: No cervical abnormality identified. RIGHT OVARY: Measures 2.2 x 4.4 cm. No solid mass. Normal flow. Multiple subcentimeter follicles. LEFT OVARY: Measures 1.8 x 3.7 cm. No solid mass. Normal flow. Multiple subcentimeter follicles. FREE FLUID: No significant free fluid noted. OTHER FINDINGS: None. IMPRESSION: Confirmation that the IUD is not in expected position within the Pramod the sternal canal.
[2018-03-20] MEDS ORDERED: metroNIDAZOLE IV 500 mg/100 ml 500 MG/100 ML BAG IVPB STA (18:12)
[2018-03-20] MEDS ORDERED: Ciprofloxacin 400mg/200ml D5W 400 MG/200 ML BAG IVPB STA (18:12)
[2018-03-20] MEDS ORDERED: Sodium Chloride 0.9% 1,000 ML IV SCH (18:15)
[2018-03-20] MEDS ORDERED: Alum-Mag Hydrox-Simethicone Susp (30 mL) PO STA (18:34)
[2018-03-20 20:10] VITALS: BP 112/57; PULSE 98; TEMP 98.4; O2SAT 99
== END 2018-03-20 20:12 | disposition short-term general hospital (02) ==
LOC: ED 11:05
DX: R10.84 Generalized abdominal pain (principal); T83.32XA Displacement of intrauterine contraceptive device, initial encounter; Y84.8 Other medical procedures as the cause of abnormal reaction of the patient, or of later complication, without mention of misadventure at the time of the procedure
CPT/HCPCS: 74177; 76830; 80053; 81001; 82803; 83690; 83735; 85025; 85610; 85730; 86850; 86900; 87040; 96361; 96374; 96375; 99285; J0744; J1885; J2405; J7030; Q9966; Q9967

== ENCOUNTER 2018-12-05 12:17 | Emergency (ER) | payer OTHER ==
[2018-12-05 12:17] VITALS: BMI 26.5
[2018-12-05] MEDS ORDERED: Sodium Chloride 0.9% 1,000 ML IV STA (13:21)
[2018-12-05] MEDS ORDERED: Alum-Mag Hydrox-Simethicone Susp (30 mL) PO STA (13:26)
--- NOTE | 2018-12-05 13:36 | ED PDOC ---
Arrival/HPI - General Chief Complaint: Abdominal Pain Time Seen by Provider: 12/05/18 12:18 Historian: Patient - History of Present Illness Narrative History of Present Illness (Text): 12/05/18 13:31 28 year old female, whose past medical history includes asthma, gastritis, history of ovarian cyst, presents complaining of abdominal pain that began approximately 10 hours ago associated with nausea, vomiting, and diarrhea. Patie nt reports she took Pepto Bismol with no relief. Patient reports she ate spinach and chicken nuggets with her yesterday. Patient noted that her daughter 4-5 days ago had episode of vomiting and a fever for one day. Patient reports chills, but denies any fever, chest pain, shortness of breath, urinary symptoms, back pain, neck pain, headache, dizziness, or any other complaints. PMD: Dr. Kristi Green Time/Duration: Other (10 hours ago (2AM)) Symptom Onset: Gradual Symptom Course: Unchanged Activities at Onset: Light Context: Home Past Medical History - Provider Review Nursing Documentation Reviewed: Yes - Infectious Disease Hx of Infectious Diseases: None - Tetanus Immunization Tetanus Immunization: Unknown - Past Medical History Past Medical History: No Previous - Cardiac Hx Cardiac Disorders: No - Pulmonary Hx Respiratory Disorders: No - Neurological Hx Neurological Disorder: No - HEENT Hx HEENT Disorder: No - Renal Hx Renal Disorder: No - Endocrine/Metabolic Hx Endocrine Disorders: No - Hematological/Oncological Hx Blood Disorders: No - Integumentary Hx Dermatological Disorder: No - Musculoskeletal/Rheumatological Hx Musculoskeletal Disorders: No - Gastrointestinal Hx Gastrointestinal Disorders: Yes Hx Gastritis: Yes - Genitourinary/Gynecological Hx Genitourinary Disorders: No - Psychiatric Hx Psychophysiologic Disorder: No Hx Substance Use: No - Surgical History Hx Section: Yes (x2) - Anesthesia Hx Anesthesia: Yes Hx Anesthesia Reactions: No - Suicidal Assessment Feels Threatened In Home Enviroment: No Family/Social History - Physician Review Nursing Documentation Reviewed: Yes Family/Social History: No Known Family HX Smoking Status: Never Smoked Hx Alcohol Use: Yes Hx Substance Use: No Hx Substance Use Treatment: No Allergies/Home Meds Allergies/Adverse Reactions: Allergies No Known Allergies Allergy (Verified 12/05/18 13:02) Review of Systems - Physician Review All systems were reviewed & negative as marked: Yes - Review of Systems Constitutional: Other (chills). absent: Fevers Respiratory: absent: SOB Cardiovascular: absent: Chest Pain Gastrointestinal: Abdominal Pain, Diarrhea, Nausea, Vomiting Genitourinary Female: absent: Dysuria, Frequency, Hematuria Musculoskeletal: absent: Back Pain, Neck Pain Neurological: absent: Headache, Dizziness Physical Exam Vital Signs Reviewed: Yes Vital Signs Temp Pulse Resp BP Pulse Ox 12/05/18 13:02 98.9 F 105 H 16 118/78 100 Temperature: Afebrile Blood Pressure: Normal Pulse: Tachycardic Respiratory Rate: Normal Appearance: Positive for: Well-Appearing, Non-Toxic, Comfortable Pain Distress: None Mental Status: Positive for: Alert and Oriented X 3 - Systems Exam Head: Present: Atraumatic, Normocephalic Mouth: Present: Moist Mucous Membranes Respiratory/Chest: Present: Clear to Auscultation, Good Air Exchange. No: Respiratory Distress, Accessory Muscle Use Cardiovascular: Present: Regular Rate and Rhythm, Normal S1, S2. No: Murmurs Abdomen: Present: Tenderness (suprapubic pain and tender to palpation). No: Distention, Peritoneal Signs Back: Present: CVA Tenderness (left-sided ) Neurological: Present: GCS=15, Speech Normal Skin: Present: Warm, Dry, Normal Color. No: Rashes Psychiatric: Present: Alert, Oriented x 3 Medical Decision Making ED Course and Treatment: 12/05/18 13:31 Impression: 28 year old female presents complaining of abdominal pain associated with nausea, vomiting, diarrhea, and chills that began approximately 10 hours ago. Differential Diagnosis included but are not limited to: -- gastroenteritis -- colitis -- Pyelonephritis Plan: -- Labs -- Pepcid --IV Fluids --Toradol --Zofran --Urinalysis --Reassess and disposition Prior Visits: Notes and results from previous visits were reviewed. Progress Notes: 12/05/18 16:02 Labs reviewed with no electrolyte abnormalities or leukocyto Patient reevaluated and feels better. - Lab Interpretations Lab Results: 12/05/18 14:45 12/05/18 14:45 Lab Results 12/05/18 14:45: Sodium 139, Potassium 3.8, Chloride 105, Carbon Dioxide 24, Anion Gap 14, BUN 10, Creatinine 0.6 L, Est GFR ( Amer) > 60, Est GFR (Non-Af Amer) > 60, Random Glucose 81, Calcium 8.9, Magnesium 2.0, Total Bilirubin 0.8, AST 25, ALT 21, Alkaline Phosphatase 71, Total Protein 7.9, Albumin 4.3, Globulin 3.6, Albumin/Globulin Ratio 1.2, Lipase 38 12/05/18 14:45: PT 12.9 H, INR 1.16, APTT 33.8 12/05/18 14:45: WBC 6.9, RBC 4.53, Hgb 14.0, Hct 42.1, MCV 92.9, MCH 30.9, MCHC 33.3, RDW 12.5, Plt Count 245, MPV 10.0, Neut % (Auto) 88.0 H, Lymph % (Auto) 6.5 L, Walker % (Auto) 5.4, Eos % (Auto) 0.1 L, Baso % (Auto) 0.0, Lymph # (Auto) 0.5 L, Walker # (Auto) 0.4, Eos # (Auto) 0.0, Baso # (Auto) 0.00, Absolute Neuts (auto) 6.05 12/05/18 13:30: Urine Color Yellow, Urine Appearance Clear, Urine pH 6.0, Ur Specific [place] 1.020, Urine Protein Negative, Urine Glucose (UA) Negative, Urine Ketones 15 H, Urine Blood Small H, Urine Nitrate Negative, Urine Bilirubin Negative, Urine Urobilinogen 0.2, Ur Leukocyte Esterase Negative, Urine RBC 2 - 5 H, Urine WBC 0 - 2, Ur Epithelial Cells 4 - 5, Urine Bacteria Few I have reviewed the lab results: Yes - Medication Orders Current Medication Orders: Sodium Chloride (Sodium Chloride 0.9%) 1,000 mls @ 999 mls/hr IV .Q1H1M STA Stop: 12/05/18 14:21 Discontinued Medications Al Hydrox/Mg Hydrox/Simethicone (Maalox Plus 30 Ml) 30 ml PO STAT STA Stop: 12/05/18 13:27 Famotidine (Pepcid) 40 mg PO STAT STA Stop: 12/05/18 13:27 Ketorolac Tromethamine (Toradol) 15 mg IVP STAT STA Stop: 12/05/18 13:28 Ondansetron HCl (Zofran Inj) 4 mg IVP STAT STA Stop: 12/05/18 13:22 Discontinued Medications Al Hydrox/Mg Hydrox/Simethicone (Maalox Plus 30 Ml) 30 ml PO STAT STA Stop: 12/05/18 13:27 Last Admin: 12/05/18 14:58 Dose: 30 ml Famotidine (Pepcid) 40 mg PO STAT STA Stop: 12/05/18 13:27 Last Admin: 12/05/18 14:58 Dose: 40 mg Sodium Chloride (Sodium Chloride 0.9%) 1,000 mls @ 999 mls/hr IV .Q1H1M STA Stop: 12/05/18 14:21 Last Admin: 12/05/18 14:55 Dose: 999 mls/hr eMAR Start Stop Document 12/05/18 14:55 CD (Rec: 12/05/18 14:56 CD [facility] [place]-ER-21) Intravenous Solution Start Date 12/05/18 Start Time 14:56 End Date 12/05/18 End time 15:56 Total Infusion Time 60 Ketorolac Tromethamine (Toradol) 15 mg IVP STAT STA Stop: 12/05/18 13:28 Last Admin: 12/05/18 14:58 Dose: 15 mg MAR Pain Assessment Document 12/05/18 14:58 CD (Rec: 12/05/18 14:59 CD [facility] [place]-ER-21) Pain Reassessment Is this a pain reassessment? No Sleep Is patient sleeping during reassessment? No Presence of Pain Presence of Pain Yes Pain Scale Used Protocol: PSCALES Pain Scale Used Numeric Location Pain Location Body Site Abdomen Description Description Intermittent Intensity of Pain at present 10 Pain Behavior Moaning Aggravating Factors Exercise/Activity Alleviating Factors/Management Inactivity Techniques Alleviating Factors Inactivity IVP Administration Document 12/05/18 14:58 CD (Rec: 12/05/18 14:59 CD [facility] [place]-[facility]-21) Charges for Administration # of IVP Administrations 1 Ondansetron HCl (Zofran Inj) 4 mg IVP STAT STA Stop: 12/05/18 13:22 Last Admin: 12/05/18 14:58 Dose: 4 mg IVP Administration Document 12/05/18 14:58 CD (Rec: 12/05/18 14:58 CD [facility] [place]-ER-21) Charges for Administration # of IVP Administrations 1 - Scribe Statement The provider has reviewed the documentation as recorded by the Claudio Obrien Provider Scribe Attestation: All medical record entries made by the Scribe were at my direction and personally dictated by me. I have reviewed the chart and agree that the record accurately reflects my personal performance of the history, physical exam, medical decision making, and the department course for this patient. I have also personally directed, reviewed, and agree with the discharge instructions and disposition. Disposition/Present on Arrival - Present on Arrival Any Indicators Present on Arrival: No History of DVT/PE: No History of Uncontrolled Diabetes: No Urinary Catheter: No History of Decub. Ulcer: No History Surgical Site Infection Following: None - Disposition Have Diagnosis and Disposition been Completed?: Yes Diagnosis: Gastroenteritis Disposition: HOME/ ROUTINE Disposition Time: 15:56 Patient Plan: Discharge Condition: IMPROVED Discharge Instructions (ExitCare): Gastroenteritis (ED) Print Language: URDU Additional Instructions: All medical record entries made by the Scribe were at my direction and personally dictated by me. I have reviewed the chart and agree that the record accurately reflects my personal performance of the history, physical exam, medical decision making, and the department course for this patient. I have also personally directed, reviewed, and agree with the discharge instructions and disposition. Please take medications as prescribed Please try to schedule a appointment with a kinder teacher Prescriptions: Aluminum Hydroxide/Magnesium H [Maalox 30 ml] 30 ml PO Q4H #50 udc Famotidine [Pepcid] 40 mg PO Q6H #10 tablet Ondansetron ODT [Zofran ODT] 4 mg PO Q6H #6 odt Referrals: Laisha Gan MD [Medical Doctor] - Follow up with primary Cole Jean Baptiste MD [Staff Provider] - Follow up with primary Forms: [employer] ([place]), WORK NOTE
[2018-12-05 13:40] LABS: URINE BILIRUBIN NEGATIVE (NEGATIVE); URINE BLOOD SMALL (NEGATIVE); URINE GLUCOSE (UA) NEGATIVE (NEGATIVE); URINE LEUKOCYTE ESTERASE NEGATIVE Leu/uL (NEGATIVE); URINE PROTEIN NEGATIVE mg/dL (<30 mg/dL); URINE UROBILINOGEN 0.2 E.U./dL (<1 E.U./dL)
[2018-12-05 14:25] LABS: URINE APPEARANCE CLEAR (CLEAR); URINE COLOR YELLOW (YELLOW)
[2018-12-05 14:28] LABS: URINE BACTERIA FEW /hpf; URINE WBC 0 - 2 /hpf (0-6)
[2018-12-05 15:06] LABS: EOS % 0.1 % (1.5-5.0); LYMPH # 0.5 (1.2-3.4); LYMPH % 6.5 % (22.0-35.0); MEAN CELL VOLUME 92.9 fl (80.0-105.0); MEAN CORPUSCULAR HEMOGLOBIN 30.9 pg (25.0-35.0); MEAN CORPUSCULAR HGB CONC 33.3 g/dl (31.0-37.0); MONO # 0.4 (0.1-0.6); MONO % 5.4 % (1.0-6.0); RBC 4.53 10^6/uL (3.5-6.1); RED CELL DISTRIBUTION WIDTH 12.5 % (11.5-14.5); WHITE BLOOD COUNT 6.9 10^3/uL (4.5-11.0)
[2018-12-05 15:07] LABS: INR 1.16; PARTIAL THROMBOPLASTIN TIME 33.8 Seconds (26.9-38.3); PROTHROMBIN TIME 12.9 SECONDS (9.4-12.5)
[2018-12-05 15:10] LABS: ALB/GLOB RATIO 1.2 (1.1-1.8); ALBUMIN 4.3 g/dL (3.0-4.8); ALT/SGPT 21 U/L (7-56); AST/SGOT 25 U/L (14-36); BLOOD UREA NITROGEN 10 mg/dL (7-21); CALCIUM 8.9 mg/dL (8.4-10.5); GFR NON-AFRICAN AMERICAN > 60; LIPASE 38 U/L (23-300)
[2018-12-05 16:57] VITALS: BP 122/88; PULSE 79; RESP 19; TEMP 97.6; O2SAT 99
== END 2018-12-05 16:57 | disposition home or self-care (01) ==
LOC: ED 12:17
DX: K52.9 Noninfective gastroenteritis and colitis, unspecified (principal)
CPT/HCPCS: 80053; 81001; 81025; 83690; 83735; 85025; 85610; 85730; 96361; 96374; 96375; 99282; J1885; J2405; J7030